=== PATIENT | male | born 1940 | race African-American/Black ===

== ENCOUNTER 2017-11-14 08:32 | Inpatient (IN) ==
[2017-11-14] MEDS ORDERED: LEVOFLOXACIN INJ 750 MG in PREMIX 1 EACH IV STA (08:53)
[2017-11-14] MEDS ORDERED: ALBUTEROL/IPRATROPIUM 3 ML NEB RESP TX STA (08:53)
[2017-11-14] MEDS ORDERED: methylPREDNISolone SOD SUC 125 MG/2 ML VIAL IV STA (08:53)
[2017-11-14] MEDS ORDERED: methylPREDNISolone SOD SUC 125 MG/2 ML VIAL ONE (09:05)
[2017-11-14] MEDS ORDERED: LEVOFLOXACIN INJ 150 ML IV ONE (09:05)
[2017-11-14 09:13] LABS: Basophils # 0.1 10*3/uL (0.0-0.2); Basophils % 0.4 % (0.0-0.8); Hematocrit 41.3 VOL% (42.0-52.0); Hemoglobin 13.1 GM/DL (14.0-18.0); Immature Granulocytes % 0.5 %; Immature Granulocytes Absolute 0.06 #; Lymphocytes # 1.2 10*3/uL (1.4-4.0); Mean Corpuscular HGB Conc 31.7 GM/DL (32-36); Mean Corpuscular Hemoglobin 27 PG (27-34); Mean Corpuscular Volume 85.9 FL (87-102); Mean Platelet Volume 11.4 FL (9.6-12.0); Monocytes # 1.3 10*3/uL (0.11-0.8); Monocytes % 11.2 % (1.7-12.7); Neutrophils # 9.2 10*3/uL (1.4-7.4); Neutrophils % 77.9 % (38.7-73.9); Platelet Count 199 T/CUMM (130-400); Red Blood Count 4.81 MC/CUMM (3.8-5.5); Red Cell Distribution Width 18.2 % (9.3-17.3); White Blood Count 11.8 T/CUMM (4-12)
[2017-11-14 09:16] LABS: ABG Base Excess -1.5 MMOL/L (-2.5-2.5); ABG HCO3 23.1 MMOL/L (20-26); ABG PCO2 46.3 MM HG (35-48); ABG PH 7.336 (7.35-7.45); ABG PO2 84.8 MM HG (80-95); ABG TCO2 21.8 MMOL/L (23-27)
[2017-11-14 09:43] LABS: Alanine Aminotransferase 26 U/L (16-61); Albumin 3.7 G/DL (3.4-5.0); Alkaline Phosphatase 105 U/L (45-117); Aspartate Amino Transferase 29 U/L (0-37); Blood Urea Nitrogen 14 MG/DL (7-18); Calcium 8.6 MG/DL (8.5-10.1); Glucose 109 MG/DL (74-106); Osmolality,Calculated 282.3 MOS/KG (273-304); Potassium 4.5 MMOL/L (3.5-5.1); Sodium 141 MMOL/L (136-145); Total Protein 7.1 G/DL (6.4-8.3); Troponin I Only < 0.015 NG/ML (0.00-0.045)
[2017-11-14] MEDS ORDERED: ALBUTEROL/IPRATROPIUM 3 ML NEB RESP TX PRN (12:16)
[2017-11-14] MEDS ORDERED: ONDANSETRON 4 MG/2 ML VIAL IV PRN (12:52)
[2017-11-14] MEDS: ALBUTEROL/IPRATROPIUM 3 ML NEB RESP TX SCH ×2 (13:02→20:54)
[2017-11-14] MEDS: ENOXAPARIN 40 MG/0.4 ML SYRINGE SUBCUT SCH (14:21)
[2017-11-14] MEDS ORDERED: AMINOPHYLLINE 250 MG in SODIUM CHLORIDE 0.9% 100 ML IV ONE (16:00)
[2017-11-14] MEDS: methylPREDNISolone SOD SUC 40 MG/1 ML VIAL IV SCH (16:25)
[2017-11-14] MEDS: AMINOPHYLLINE 500 MG in SODIUM CHLORIDE 0.9% 480 ML IV SCH (20:02)
[2017-11-14] MEDS: MONTELUKAST 10 MG TABLET PO SCH (20:53)
[2017-11-15] MEDS: ALBUTEROL/IPRATROPIUM 3 ML NEB RESP TX SCH ×4 (01:30→15:11)
[2017-11-15] MEDS: methylPREDNISolone SOD SUC 40 MG/1 ML VIAL IV SCH ×3 (01:50→16:05)
[2017-11-15 06:06] LABS: Basophils % 0.1 % (0.0-0.8); Immature Granulocytes % 0.8 %; Immature Granulocytes Absolute 0.11 #; Lymphocytes # 0.9 10*3/uL (1.4-4.0); Lymphocytes % 6.6 % (21.2-54.2); Mean Corpuscular HGB Conc 32.5 GM/DL (32-36); Mean Corpuscular Hemoglobin 27 PG (27-34); Mean Platelet Volume 11.4 FL (9.6-12.0); Monocytes # 0.3 10*3/uL (0.11-0.8); Monocytes % 2.5 % (1.7-12.7); Neutrophils # 11.7 10*3/uL (1.4-7.4); Platelet Count 214 T/CUMM (130-400); Red Blood Count 4.76 MC/CUMM (3.8-5.5); Red Cell Distribution Width 18.2 % (9.3-17.3)
[2017-11-15 06:35] LABS: Albumin 3.5 G/DL (3.4-5.0); Bilirubin,Total 0.7 MG/DL (0.2-1.0); Calcium 8.7 MG/DL (8.5-10.1); Osmolality,Calculated 282.4 MOS/KG (273-304); Total Protein 6.7 G/DL (6.4-8.3)
[2017-11-15] MEDS: NICOTINE 14 MG/24 HR PATCH TRANSDERM SCH (09:40)
[2017-11-15] MEDS: ATENOLOL 50 MG TABLET PO SCH (09:41)
[2017-11-15] MEDS: PANTOPRAZOLE 40 MG TABLET PO SCH (09:41)
[2017-11-15] MEDS: MONTELUKAST 10 MG TABLET PO SCH ×2 (09:41→20:23)
[2017-11-15] MEDS: amLODIPine 5 MG TABLET PO SCH (09:41)
[2017-11-15] MEDS: LEVOFLOXACIN INJ 750 MG in PREMIX 1 EACH IV SCH (09:41)
[2017-11-15] MEDS: ENOXAPARIN 40 MG/0.4 ML SYRINGE SUBCUT SCH (13:14)
[2017-11-15] MEDS ORDERED: ALBUTEROL/IPRATROPIUM 3 ML NEB RESP TX PRN (15:00)
[2017-11-15] MEDS ORDERED: EPINEPHrine 1 MG/ML VIAL SUBCUT ONE (17:37)
[2017-11-15] MEDS ORDERED: IPRATROPIUM 500 MCG/2.5 ML NEB RESP TX ONE (18:21)
[2017-11-15] MEDS ORDERED: PROPOFOL 1,000 MG/100 ML BOTTLE IV ONE (19:10)
[2017-11-15] MEDS ORDERED: PROPOFOL 200 MG/20 ML VIAL IV ONE (19:28)
[2017-11-15] MEDS ORDERED: ROCURONIUM 100 MG/10 ML VIAL IV ONE (19:29)
[2017-11-15] MEDS: PROPOFOL 1,000 MG/100 ML BOTTLE IV SCH (19:45)
[2017-11-15 20:11] LABS: ABG Base Excess -2.3 MMOL/L (-2.5-2.5); ABG HCO3 22.5 MMOL/L (20-26); ABG Oxygen Saturation 99.5 % (95-100); ABG PH 7.287 (7.35-7.45); ABG TCO2 22.4 MMOL/L (23-27)
[2017-11-15] MEDS: AMINOPHYLLINE 500 MG in SODIUM CHLORIDE 0.9% 480 ML IV SCH (20:23)
[2017-11-15 23:44] LABS: Apearance,Urine Slightly Hazy (Clear); Bilirubin,Urine Negative (Negative); Blood, Urine Moderate mg/dL (Negative); Glucose,Urine (UA) Negative (Negative); Granular Casts,Urine 5 /LPF (0-1); Hyaline Casts,Urine 29 /LPF (0-3); Ketones,Urine Negative (Negative); Mucus,Urine Occasional /LPF (Occasional); Nitrite,Urine Negative (Negative); Protein,Urine 30 MG/DL; RBC,Urine 2 /HPF (0-4); Squamous Epithelial Cell,Urine Occasional /HPF (0-10); Urine Color Yellow (Yellow); Urine Specific Gravity 1.021 (1.001-1.035); Urine Urobilinogen < 2.0 EU/DL (0.2-1.0); WBC,Urine 78 /HPF (0-6)
[2017-11-16] MEDS: PROPOFOL 1,000 MG/100 ML BOTTLE IV SCH ×4 (00:23→20:52)
[2017-11-16] MEDS: ALBUTEROL/IPRATROPIUM 3 ML NEB RESP TX SCH ×7 (00:23→19:23)
[2017-11-16] MEDS ORDERED: SODIUM CHLORIDE 0.9% 250 ML IV ONE (00:29)
[2017-11-16] MEDS: methylPREDNISolone SOD SUC 40 MG/1 ML VIAL IV SCH ×3 (01:19→17:56)
[2017-11-16 03:53] LABS: ABG Base Excess -3.2 MMOL/L (-2.5-2.5); ABG HCO3 21.8 MMOL/L (20-26); ABG Oxygen Saturation 99.6 % (95-100); ABG TCO2 21.1 MMOL/L (23-27)
[2017-11-16] MEDS: SODIUM CHLORIDE 0.9% 1,000 ML IV SCH ×4 (04:16→20:58)
[2017-11-16 04:54] LABS: Basophils % 0.1 % (0.0-0.8); Hematocrit 41.6 VOL% (42.0-52.0); Hemoglobin 13.2 GM/DL (14.0-18.0); Lymphocytes # 0.8 10*3/uL (1.4-4.0); Lymphocytes % 3.9 % (21.2-54.2); Mean Corpuscular HGB Conc 31.7 GM/DL (32-36); Mean Corpuscular Hemoglobin 27 PG (27-34); Mean Corpuscular Volume 86.1 FL (87-102); Mean Platelet Volume 12.1 FL (9.6-12.0); Monocytes # 1.9 10*3/uL (0.11-0.8); Monocytes % 9.6 % (1.7-12.7); NRBC # 0.05 10*3/uL; Neutrophils # 17.1 10*3/uL (1.4-7.4); Neutrophils % 85.4 % (38.7-73.9); Platelet Count 220 T/CUMM (130-400); Red Blood Count 4.83 MC/CUMM (3.8-5.5); Red Cell Distribution Width 18.6 % (9.3-17.3); White Blood Count 20.1 T/CUMM (4-12)
[2017-11-16 05:29] LABS: Band Neutrophils 24 % (0-10); Lymphocytes 6 % (20-55); Segmented Neutrophils 66 % (50-85); Target Cells 1+; Total Cells Counted 100
[2017-11-16 05:30] LABS: Anisocytosis 1+
[2017-11-16] MEDS: DORNASE ALFA 2.5 MG/2.5 ML VIAL RESP TX SCH ×2 (07:44→19:30)
[2017-11-16] MEDS: LEVOFLOXACIN INJ 750 MG in PREMIX 1 EACH IV SCH (10:16)
[2017-11-16] MEDS: amLODIPine 5 MG TABLET PO SCH (10:17)
[2017-11-16] MEDS: MONTELUKAST 10 MG TABLET PO SCH ×2 (10:17→20:51)
[2017-11-16] MEDS: ATENOLOL 50 MG TABLET PO SCH (10:17)
[2017-11-16] MEDS: NICOTINE 14 MG/24 HR PATCH TRANSDERM SCH (10:24)
[2017-11-16] MEDS: PANTOPRAZOLE 40 MG VIAL IV SCH (10:34)
[2017-11-16] MEDS ORDERED: DEXTROSE 50% 25 GM/50 ML VIAL IV PRN (11:57)
[2017-11-16] MEDS ORDERED: GLUCAGON 1 MG VIAL IM PRN (11:57)
[2017-11-16] MEDS: INSULIN REGULAR 100 UNIT/ML SUBCUT SCH ×2 (12:58→17:48)
[2017-11-16] MEDS: ENOXAPARIN 40 MG/0.4 ML SYRINGE SUBCUT SCH (13:34)
[2017-11-16] MEDS: PANTOPRAZOLE 40 MG TABLET PO SCH (14:01)
[2017-11-16] MEDS: AMINOPHYLLINE 500 MG in SODIUM CHLORIDE 0.9% 480 ML IV SCH (20:52)
[2017-11-17] MEDS: ALBUTEROL/IPRATROPIUM 3 ML NEB RESP TX SCH ×7 (01:04→23:31)
[2017-11-17] MEDS: INSULIN REGULAR 100 UNIT/ML SUBCUT SCH ×4 (01:20→19:27)
[2017-11-17] MEDS: PROPOFOL 1,000 MG/100 ML BOTTLE IV SCH ×3 (01:21→20:25)
[2017-11-17] MEDS: methylPREDNISolone SOD SUC 40 MG/1 ML VIAL IV SCH ×3 (02:21→19:49)
[2017-11-17 03:08] LABS: ABG Base Excess -3.5 MMOL/L (-2.5-2.5); ABG HCO3 22.3 MMOL/L (20-26); ABG Oxygen Saturation 99.1 % (95-100); ABG PCO2 43.3 MM HG (35-48); ABG PO2 245.4 MM HG (80-95); ABG TCO2 23.6 MMOL/L (23-27)
[2017-11-17 05:03] LABS: Basophils % 0.1 % (0.0-0.8); Hematocrit 36.5 VOL% (42.0-52.0); Hemoglobin 11.8 GM/DL (14.0-18.0); Immature Granulocytes % 0.7 %; Lymphocytes # 0.8 10*3/uL (1.4-4.0); Lymphocytes % 6.2 % (21.2-54.2); Mean Corpuscular HGB Conc 32.3 GM/DL (32-36); Mean Corpuscular Hemoglobin 27 PG (27-34); Mean Corpuscular Volume 83.5 FL (87-102); Mean Platelet Volume 11.3 FL (9.6-12.0); Monocytes # 0.7 10*3/uL (0.11-0.8); Monocytes % 5.3 % (1.7-12.7); Neutrophils # 11.8 10*3/uL (1.4-7.4); Neutrophils % 87.7 % (38.7-73.9); Platelet Count 186 T/CUMM (130-400); Red Blood Count 4.37 MC/CUMM (3.8-5.5); Red Cell Distribution Width 17.8 % (9.3-17.3); White Blood Count 13.4 T/CUMM (4-12)
[2017-11-17 05:28] LABS: Magnesium 2.8 MG/DL (1.8-2.4); Prealbumin 13.8 MG/DL (20-40)
[2017-11-17] MEDS: SODIUM CHLORIDE 0.9% 1,000 ML IV SCH (06:06)
[2017-11-17 06:10] LABS: Calcium 7.9 MG/DL (8.5-10.1); Osmolality,Calculated 295.3 MOS/KG (273-304)
[2017-11-17] MEDS: DORNASE ALFA 2.5 MG/2.5 ML VIAL RESP TX SCH ×2 (07:20→20:05)
[2017-11-17] MEDS: NICOTINE 14 MG/24 HR PATCH TRANSDERM SCH (09:30)
[2017-11-17] MEDS ORDERED: SODIUM CHLORIDE 0.9% 1,000 ML IV SCH (09:30)
[2017-11-17] MEDS: ATENOLOL 50 MG TABLET PO SCH (09:30)
[2017-11-17] MEDS: PANTOPRAZOLE 40 MG VIAL IV SCH (09:30)
[2017-11-17] MEDS: MONTELUKAST 10 MG TABLET PO SCH ×2 (09:30→22:17)
[2017-11-17] MEDS: amLODIPine 5 MG TABLET PO SCH (09:55)
[2017-11-17] MEDS: ENOXAPARIN 40 MG/0.4 ML SYRINGE SUBCUT SCH (14:00)
[2017-11-17] MEDS: AMINOPHYLLINE 500 MG in SODIUM CHLORIDE 0.9% 480 ML IV SCH (21:51)
[2017-11-18] MEDS: INSULIN REGULAR 100 UNIT/ML SUBCUT SCH ×4 (01:09→18:30)
[2017-11-18] MEDS: PROPOFOL 1,000 MG/100 ML BOTTLE IV SCH ×5 (01:25→21:02)
[2017-11-18] MEDS: methylPREDNISolone SOD SUC 40 MG/1 ML VIAL IV SCH ×3 (01:50→17:00)
[2017-11-18] MEDS: ALBUTEROL/IPRATROPIUM 3 ML NEB RESP TX SCH ×6 (02:36→23:47)
[2017-11-18 03:58] LABS: ABG Base Excess -2.7 MMOL/L (-2.5-2.5); ABG HCO3 23.2 MMOL/L (20-26); ABG Oxygen Saturation 99.1 % (95-100); ABG PCO2 44.2 MM HG (35-48); ABG PH 7.337 (7.35-7.45); ABG PO2 216.5 MM HG (80-95); ABG TCO2 24.5 MMOL/L (23-27); Allen Test Positive
[2017-11-18] MEDS: DORNASE ALFA 2.5 MG/2.5 ML VIAL RESP TX SCH ×2 (07:36→19:35)
[2017-11-18] MEDS ORDERED: LEVOFLOXACIN INJ 750 MG in PREMIX 1 EACH IV SCH (09:00)
[2017-11-18] MEDS: ATENOLOL 50 MG TABLET PO SCH (09:40)
[2017-11-18] MEDS: MONTELUKAST 10 MG TABLET PO SCH ×2 (09:40→20:49)
[2017-11-18] MEDS: NICOTINE 14 MG/24 HR PATCH TRANSDERM SCH (09:40)
[2017-11-18] MEDS: amLODIPine 5 MG TABLET PO SCH (09:40)
[2017-11-18] MEDS: ACETAMINOPHEN 325 MG TABLET PO PRN ×2 (09:40→16:00)
[2017-11-18] MEDS: PANTOPRAZOLE 40 MG VIAL IV SCH (09:40)
[2017-11-18] MEDS: ENOXAPARIN 40 MG/0.4 ML SYRINGE SUBCUT SCH (13:15)
[2017-11-18] MEDS: AMINOPHYLLINE 500 MG in SODIUM CHLORIDE 0.9% 480 ML IV SCH (20:49)
[2017-11-19] MEDS: INSULIN REGULAR 100 UNIT/ML SUBCUT SCH ×4 (00:42→19:33)
[2017-11-19] MEDS: methylPREDNISolone SOD SUC 40 MG/1 ML VIAL IV SCH ×3 (00:42→17:46)
[2017-11-19] MEDS: PROPOFOL 1,000 MG/100 ML BOTTLE IV SCH ×3 (01:21→20:37)
[2017-11-19] MEDS: ALBUTEROL/IPRATROPIUM 3 ML NEB RESP TX SCH ×6 (03:45→23:57)
[2017-11-19 04:02] LABS: ABG Base Excess 1.2 MMOL/L (-2.5-2.5); ABG HCO3 25.5 MMOL/L (20-26); ABG Oxygen Saturation 99.3 % (95-100); ABG PCO2 50.9 MM HG (35-48); ABG PH 7.344 (7.35-7.45); ABG TCO2 24.7 MMOL/L (23-27)
[2017-11-19 04:16] LABS: Basophils % 0.1 % (0.0-0.8); Hematocrit 36.9 VOL% (42.0-52.0); Hemoglobin 12.1 GM/DL (14.0-18.0); Immature Granulocytes % 0.9 %; Immature Granulocytes Absolute 0.15 #; Lymphocytes # 1.5 10*3/uL (1.4-4.0); Mean Corpuscular HGB Conc 32.8 GM/DL (32-36); Mean Corpuscular Hemoglobin 27 PG (27-34); Mean Corpuscular Volume 82.9 FL (87-102); Mean Platelet Volume 12.1 FL (9.6-12.0); Monocytes # 1.5 10*3/uL (0.11-0.8); Monocytes % 9.2 % (1.7-12.7); Neutrophils # 13.5 10*3/uL (1.4-7.4); Neutrophils % 80.8 % (38.7-73.9); Platelet Count 212 T/CUMM (130-400); Red Blood Count 4.45 MC/CUMM (3.8-5.5); Red Cell Distribution Width 18.2 % (9.3-17.3); White Blood Count 16.7 T/CUMM (4-12)
[2017-11-19 04:54] LABS: Magnesium 2.6 MG/DL (1.8-2.4); Osmolality,Calculated 299.7 MOS/KG (273-304); Potassium 5.1 MMOL/L (3.5-5.1)
[2017-11-19 05:02] LABS: Hypochromasia 1+; Platelet Estimate Adequate
[2017-11-19 05:03] LABS: Burr Cells Slight; Giant Platelets Few; Ovalocytes Slight
[2017-11-19] MEDS: DORNASE ALFA 2.5 MG/2.5 ML VIAL RESP TX SCH ×2 (07:26→19:57)
[2017-11-19] MEDS: NICOTINE 14 MG/24 HR PATCH TRANSDERM SCH (08:23)
[2017-11-19] MEDS: MONTELUKAST 10 MG TABLET PO SCH ×2 (08:24→20:31)
[2017-11-19] MEDS: ATENOLOL 50 MG TABLET PO SCH (08:24)
[2017-11-19] MEDS: amLODIPine 5 MG TABLET PO SCH (08:24)
[2017-11-19] MEDS: PANTOPRAZOLE 40 MG VIAL IV SCH (08:25)
[2017-11-19 12:11] LABS: Allen Test Positive
[2017-11-19 12:14] LABS: ABG HCO3 27.9 MMOL/L (20-26); ABG Oxygen Saturation 97.4 % (95-100); ABG PCO2 54.3 MM HG (35-48); ABG PH 7.328 (7.35-7.45); ABG PO2 98.4 MM HG (80-95); ABG TCO2 29.5 MMOL/L (23-27)
[2017-11-19 13:36] LABS: ABG Base Excess 3.6 MMOL/L (-2.5-2.5); ABG HCO3 27.5 MMOL/L (20-26); ABG Oxygen Saturation 94.8 % (95-100); ABG PCO2 52.9 MM HG (35-48); ABG PH 7.364 (7.35-7.45); ABG PO2 72.2 MM HG (80-95); ABG TCO2 26.8 MMOL/L (23-27); Allen Test Positive; Pt O2 Delivery Device Venturi Mask
[2017-11-19] MEDS: ENOXAPARIN 40 MG/0.4 ML SYRINGE SUBCUT SCH (14:55)
[2017-11-19] MEDS: LEVOFLOXACIN INJ 750 MG in PREMIX 1 EACH IV SCH (15:47)
[2017-11-19] MEDS: AMINOPHYLLINE 500 MG in SODIUM CHLORIDE 0.9% 480 ML IV SCH (20:35)
[2017-11-20] MEDS: INSULIN REGULAR 100 UNIT/ML SUBCUT SCH (00:31)
[2017-11-20] MEDS: methylPREDNISolone SOD SUC 40 MG/1 ML VIAL IV SCH ×3 (01:16→16:15)
[2017-11-20 03:44] LABS: ABG Base Excess 5.7 MMOL/L (-2.5-2.5); ABG HCO3 29.5 MMOL/L (20-26); ABG Oxygen Saturation 93.2 % (95-100); ABG PCO2 48.3 MM HG (35-48); ABG PH 7.419 (7.35-7.45); ABG PO2 64.6 MM HG (80-95); ABG TCO2 27.7 MMOL/L (23-27); Allen Test Positive
[2017-11-20] MEDS: ALBUTEROL/IPRATROPIUM 3 ML NEB RESP TX SCH ×6 (04:20→23:56)
[2017-11-20 04:51] LABS: Basophils % 0.2 % (0.0-0.8); Immature Granulocytes Absolute 0.55 #; Lymphocytes # 1.3 10*3/uL (1.4-4.0); Lymphocytes % 6.9 % (21.2-54.2); Mean Corpuscular HGB Conc 32.4 GM/DL (32-36); Mean Corpuscular Hemoglobin 27 PG (27-34); Mean Corpuscular Volume 83.5 FL (87-102); Mean Platelet Volume 11.5 FL (9.6-12.0); Monocytes % 5.6 % (1.7-12.7); Neutrophils # 15.3 10*3/uL (1.4-7.4); Neutrophils % 84.3 % (38.7-73.9); Platelet Count 190 T/CUMM (130-400); Red Blood Count 4.43 MC/CUMM (3.8-5.5); Red Cell Distribution Width 17.6 % (9.3-17.3); White Blood Count 18.2 T/CUMM (4-12)
[2017-11-20 05:21] LABS: Calcium 8.3 MG/DL (8.5-10.1); Osmolality,Calculated 295.7 MOS/KG (273-304); Potassium 5.1 MMOL/L (3.5-5.1)
[2017-11-20 05:40] LABS: Lymphocytes 14 % (20-55); Platelet Estimate Normal; Segmented Neutrophils 83 % (50-85); Total Cells Counted 100
[2017-11-20 05:41] LABS: Hypochromasia Slight; Macrocytosis Slight
[2017-11-20 05:42] LABS: Target Cells Slight
[2017-11-20] MEDS ORDERED: FUROSEMIDE 40 MG/4 ML VIAL IV ONE (06:38)
[2017-11-20] MEDS: DORNASE ALFA 2.5 MG/2.5 ML VIAL RESP TX SCH ×2 (07:23→20:19)
[2017-11-20] MEDS: NICOTINE 14 MG/24 HR PATCH TRANSDERM SCH (08:02)
[2017-11-20] MEDS: PANTOPRAZOLE 40 MG VIAL IV SCH (08:02)
[2017-11-20] MEDS: MONTELUKAST 10 MG TABLET PO SCH ×2 (08:02→21:25)
[2017-11-20] MEDS: amLODIPine 5 MG TABLET PO SCH (11:38)
[2017-11-20] MEDS: ATENOLOL 50 MG TABLET PO SCH (11:38)
[2017-11-20] MEDS: ENOXAPARIN 40 MG/0.4 ML SYRINGE SUBCUT SCH (13:30)
[2017-11-20] MEDS: LEVOFLOXACIN INJ 750 MG in PREMIX 1 EACH IV SCH (16:17)
[2017-11-20] MEDS: AMINOPHYLLINE 500 MG in SODIUM CHLORIDE 0.9% 480 ML IV SCH (21:25)
[2017-11-21] MEDS: methylPREDNISolone SOD SUC 40 MG/1 ML VIAL IV SCH ×3 (01:30→16:33)
[2017-11-21] MEDS: ALBUTEROL/IPRATROPIUM 3 ML NEB RESP TX SCH ×5 (04:21→19:37)
[2017-11-21 04:48] LABS: Basophils % 0.1 % (0.0-0.8); Hematocrit 39.1 VOL% (42.0-52.0); Hemoglobin 12.5 GM/DL (14.0-18.0); Immature Granulocytes % 3.7 %; Immature Granulocytes Absolute 0.76 #; Lymphocytes # 1.1 10*3/uL (1.4-4.0); Lymphocytes % 5.4 % (21.2-54.2); Mean Corpuscular Hemoglobin 26 PG (27-34); Mean Corpuscular Volume 82.7 FL (87-102); Neutrophils # 17.8 10*3/uL (1.4-7.4); Neutrophils % 85.8 % (38.7-73.9); Platelet Count 222 T/CUMM (130-400); Red Blood Count 4.73 MC/CUMM (3.8-5.5); Red Cell Distribution Width 17.6 % (9.3-17.3); White Blood Count 20.7 T/CUMM (4-12)
[2017-11-21 05:13] LABS: Calcium 8.6 MG/DL (8.5-10.1); Potassium 4.6 MMOL/L (3.5-5.1)
[2017-11-21 06:08] LABS: Band Neutrophils 3 % (0-10); Lymphocytes 4 % (20-55); Myelocytes 3 %; Segmented Neutrophils 87 % (50-85); Total Cells Counted 100
[2017-11-21 06:09] LABS: Anisocytosis 1+; Hypochromasia 1+; Platelet Estimate Normal; Target Cells 1+
[2017-11-21] MEDS: DORNASE ALFA 2.5 MG/2.5 ML VIAL RESP TX SCH ×2 (08:10→19:43)
[2017-11-21] MEDS ORDERED: PANTOPRAZOLE 40 MG TABLET PO ONE (08:23)
[2017-11-21] MEDS: NICOTINE 14 MG/24 HR PATCH TRANSDERM SCH (08:47)
[2017-11-21] MEDS: MONTELUKAST 10 MG TABLET PO SCH ×2 (08:48→21:02)
[2017-11-21] MEDS: ATENOLOL 50 MG TABLET PO SCH (08:48)
[2017-11-21] MEDS: amLODIPine 5 MG TABLET PO SCH (08:48)
[2017-11-21] MEDS: PANTOPRAZOLE 40 MG TABLET PO SCH ×2 (09:12→21:05)
[2017-11-21] MEDS: ENOXAPARIN 40 MG/0.4 ML SYRINGE SUBCUT SCH (14:16)
[2017-11-21] MEDS: LEVOFLOXACIN INJ 750 MG in PREMIX 1 EACH IV SCH (16:28)
[2017-11-21] MEDS: AMINOPHYLLINE 500 MG in SODIUM CHLORIDE 0.9% 480 ML IV SCH (20:54)
[2017-11-21] MEDS: ACETAMINOPHEN 325 MG TABLET PO PRN (20:55)
[2017-11-22] MEDS: ALBUTEROL/IPRATROPIUM 3 ML NEB RESP TX SCH ×6 (00:50→19:40)
[2017-11-22] MEDS: methylPREDNISolone SOD SUC 40 MG/1 ML VIAL IV SCH ×2 (01:35→09:00)
[2017-11-22 06:16] LABS: Basophils # 0.1 10*3/uL (0.0-0.2); Basophils % 0.2 % (0.0-0.8); Hematocrit 41.1 VOL% (42.0-52.0); Hemoglobin 13.8 GM/DL (14.0-18.0); Lymphocytes # 1.2 10*3/uL (1.4-4.0); Lymphocytes % 5.2 % (21.2-54.2); Mean Corpuscular HGB Conc 33.6 GM/DL (32-36); Mean Corpuscular Hemoglobin 27 PG (27-34); Mean Corpuscular Volume 81.7 FL (87-102); Mean Platelet Volume 12.5 FL (9.6-12.0); Monocytes # 0.8 10*3/uL (0.11-0.8); Monocytes % 3.6 % (1.7-12.7); Neutrophils # 19.4 10*3/uL (1.4-7.4); Platelet Count 220 T/CUMM (130-400); Red Blood Count 5.03 MC/CUMM (3.8-5.5); Red Cell Distribution Width 17.7 % (9.3-17.3); White Blood Count 22.3 T/CUMM (4-12)
[2017-11-22 06:51] LABS: Giant Platelets Few; Hypochromasia 1+; Lymphocytes 7 % (20-55); Platelet Estimate Adequate; Segmented Neutrophils 91 % (50-85); Total Cells Counted 100
[2017-11-22 06:52] LABS: Target Cells Slight
[2017-11-22 07:30] LABS: Magnesium 2.4 MG/DL (1.8-2.4); Prealbumin 26.1 MG/DL (20-40)
[2017-11-22] MEDS: DORNASE ALFA 2.5 MG/2.5 ML VIAL RESP TX SCH ×2 (08:00→19:41)
[2017-11-22] MEDS: amLODIPine 5 MG TABLET PO SCH (08:59)
[2017-11-22] MEDS: PANTOPRAZOLE 40 MG TABLET PO SCH ×2 (08:59→21:09)
[2017-11-22] MEDS: MONTELUKAST 10 MG TABLET PO SCH ×2 (08:59→21:09)
[2017-11-22] MEDS: NICOTINE 14 MG/24 HR PATCH TRANSDERM SCH (09:00)
[2017-11-22] MEDS: ATENOLOL 50 MG TABLET PO SCH (09:00)
[2017-11-22] MEDS: ENOXAPARIN 40 MG/0.4 ML SYRINGE SUBCUT SCH (13:54)
[2017-11-22] MEDS: LEVOFLOXACIN INJ 750 MG in PREMIX 1 EACH IV SCH (14:48)
[2017-11-22] MEDS ORDERED: TUBERCULIN SKIN TEST 0.1 ML SYRINGE INTRADERM ONE (15:30)
[2017-11-22] MEDS: methylPREDNISolone SOD SUC 125 MG/2 ML VIAL IV SCH (21:09)
[2017-11-23] MEDS: ALBUTEROL/IPRATROPIUM 3 ML NEB RESP TX SCH ×7 (00:49→23:24)
[2017-11-23] MEDS: AMINOPHYLLINE 500 MG in SODIUM CHLORIDE 0.9% 480 ML IV SCH (04:47)
[2017-11-23 06:49] LABS: Basophils % 0.2 % (0.0-0.8); Hematocrit 36.3 VOL% (42.0-52.0); Hemoglobin 12.2 GM/DL (14.0-18.0); Immature Granulocytes % 2.8 %; Immature Granulocytes Absolute 0.56 #; Lymphocytes # 1.4 10*3/uL (1.4-4.0); Mean Corpuscular HGB Conc 33.6 GM/DL (32-36); Mean Corpuscular Hemoglobin 27 PG (27-34); Mean Corpuscular Volume 81.2 FL (87-102); Mean Platelet Volume 12.3 FL (9.6-12.0); Monocytes # 1.5 10*3/uL (0.11-0.8); Monocytes % 7.8 % (1.7-12.7); Neutrophils # 16.3 10*3/uL (1.4-7.4); Neutrophils % 82.2 % (38.7-73.9); Platelet Count 247 T/CUMM (130-400); Red Blood Count 4.47 MC/CUMM (3.8-5.5); Red Cell Distribution Width 17.2 % (9.3-17.3); White Blood Count 19.9 T/CUMM (4-12)
[2017-11-23 07:07] LABS: Calcium 8.7 MG/DL (8.5-10.1); Osmolality,Calculated 286.3 MOS/KG (273-304); Potassium 4.6 MMOL/L (3.5-5.1)
[2017-11-23] MEDS: DORNASE ALFA 2.5 MG/2.5 ML VIAL RESP TX SCH ×2 (07:18→20:16)
[2017-11-23 07:19] LABS: Hypochromasia 2+; Lymphocytes 8 % (20-55); Platelet Estimate Adequate; Segmented Neutrophils 87 % (50-85); Total Cells Counted 100
[2017-11-23] MEDS: PANTOPRAZOLE 40 MG VIAL IV SCH (07:58)
[2017-11-23] MEDS: methylPREDNISolone SOD SUC 125 MG/2 ML VIAL IV SCH (08:48)
[2017-11-23] MEDS: MONTELUKAST 10 MG TABLET PO SCH ×2 (08:49→21:23)
[2017-11-23] MEDS: ATENOLOL 50 MG TABLET PO SCH (08:49)
[2017-11-23] MEDS: amLODIPine 5 MG TABLET PO SCH (08:49)
[2017-11-23] MEDS: NICOTINE 14 MG/24 HR PATCH TRANSDERM SCH (08:49)
[2017-11-23] MEDS: PANTOPRAZOLE 40 MG TABLET PO SCH ×2 (08:50→21:23)
[2017-11-23] MEDS: ENOXAPARIN 40 MG/0.4 ML SYRINGE SUBCUT SCH (13:08)
[2017-11-23] MEDS: LEVOFLOXACIN INJ 750 MG in PREMIX 1 EACH IV SCH (16:30)
[2017-11-23] MEDS: methylPREDNISolone SOD SUC 40 MG/1 ML VIAL IV SCH (21:23)
[2017-11-24] MEDS: ALBUTEROL/IPRATROPIUM 3 ML NEB RESP TX SCH ×5 (02:33→19:34)
[2017-11-24] MEDS: AMINOPHYLLINE 500 MG in SODIUM CHLORIDE 0.9% 480 ML IV SCH (06:29)
[2017-11-24] MEDS: DORNASE ALFA 2.5 MG/2.5 ML VIAL RESP TX SCH ×2 (07:20→21:09)
[2017-11-24] MEDS: MONTELUKAST 10 MG TABLET PO SCH ×2 (09:06→20:09)
[2017-11-24] MEDS: NICOTINE 14 MG/24 HR PATCH TRANSDERM SCH (09:06)
[2017-11-24] MEDS: methylPREDNISolone SOD SUC 40 MG/1 ML VIAL IV SCH (09:07)
[2017-11-24] MEDS: PANTOPRAZOLE 40 MG TABLET PO SCH ×2 (09:07→20:09)
[2017-11-24] MEDS: ATENOLOL 50 MG TABLET PO SCH (09:07)
[2017-11-24] MEDS: amLODIPine 5 MG TABLET PO SCH (09:07)
[2017-11-24] MEDS: THEOPHYLLINE ER 300 MG TABLET PO SCH ×2 (12:15→17:25)
[2017-11-24] MEDS: ENOXAPARIN 40 MG/0.4 ML SYRINGE SUBCUT SCH (12:15)
[2017-11-24] MEDS: LEVOFLOXACIN INJ 750 MG in PREMIX 1 EACH IV SCH (15:20)
[2017-11-25] MEDS: ALBUTEROL/IPRATROPIUM 3 ML NEB RESP TX SCH ×3 (00:03→07:44)
[2017-11-25] MEDS: DORNASE ALFA 2.5 MG/2.5 ML VIAL RESP TX SCH (07:47)
[2017-11-25] MEDS: THEOPHYLLINE ER 300 MG TABLET PO SCH (08:20)
[2017-11-25] MEDS: amLODIPine 5 MG TABLET PO SCH (08:20)
[2017-11-25] MEDS: NICOTINE 14 MG/24 HR PATCH TRANSDERM SCH (08:20)
[2017-11-25] MEDS: MONTELUKAST 10 MG TABLET PO SCH (08:20)
[2017-11-25] MEDS: ATENOLOL 50 MG TABLET PO SCH (08:21)
[2017-11-25] MEDS: PANTOPRAZOLE 40 MG TABLET PO SCH (08:21)
[2017-11-25] MEDS ORDERED: predniSONE 20 MG TABLET PO SCH (09:00)
[2017-11-25 09:36] VITALS: BP 122/87
== END 2017-11-25 12:00 | disposition swing bed (61) | DRG 166 ==
LOC: EDUNIT# → N.ED 08:32 → SUATTDRO 11:12 → N.EDINP 11:12 → N.5E 12:28 → N.ICU 11-15 19:07 → N.5E 11-22 20:34
PROVIDERS: ADMIT Hospitalist; ATTEND Internal Medicine

== ENCOUNTER 2019-10-03 05:45 | Inpatient (IN) ==
[2019-10-03] MEDS ORDERED: DIAZEPAM 5 MG TABLET PO ONE (06:00)
[2019-10-03] MEDS ORDERED: POTASSIUM CHLORIDE RIDER 10 MEQ in PREMIX 1 EACH IV PRN (06:00)
[2019-10-03] MEDS ORDERED: ASPIRIN 325 MG TABLET PO ONE (06:00)
[2019-10-03] MEDS ORDERED: MAGNESIUM SULF RIDER 2 GM in PREMIX 1 EACH IV PRN (06:00)
[2019-10-03] MEDS ORDERED: diphenhydrAMINE CAP 25 MG CAPSULE PO ONE (06:00)
[2019-10-03] MEDS ORDERED: ASPIRIN 325 MG TABLET ONE (06:48)
[2019-10-03] MEDS ORDERED: DIAZEPAM 5 MG TABLET ONE (06:48)
[2019-10-03] MEDS ORDERED: diphenhydrAMINE CAP 25 MG CAPSULE ONE (06:48)
[2019-10-03] MEDS ORDERED: LIDOCAINE 1% 20 ML VIAL ONE (06:52)
[2019-10-03] MEDS ORDERED: NITROGLYCERIN DRIP 50 MG/250 ML BOTTLE IV ONE (06:52)
[2019-10-03] MEDS ORDERED: VERAPAMIL 5 MG/2 ML VIAL ONE (06:53)
[2019-10-03] MEDS: SODIUM CHLORIDE 0.9% 1,000 ML IV SCH ×3 (06:55→20:30)
[2019-10-03] MEDS ORDERED: MIDAZOLAM 2 MG/2 ML VIAL ONE (07:07)
[2019-10-03] MEDS ORDERED: fentaNYL 100 MCG/2 ML VIAL ONE (07:07)
[2019-10-03] MEDS ORDERED: ENOXAPARIN 30 MG/0.3 ML SYRINGE ONE (07:27)
[2019-10-03] MEDS ORDERED: ADENOSINE 90 MG/30 ML VIAL IV ONE (07:47)
[2019-10-03] MEDS ORDERED: ACETAMINOPHEN 325 MG TABLET PO PRN (08:16)
[2019-10-03] MEDS ORDERED: NITROGLYCERIN SL 0.4 MG TABLET SL PRN (08:16)
[2019-10-03] MEDS ORDERED: MAGNESIUM HYDROXIDE SUSP 30 ML UDCUP PO PRN (08:16)
[2019-10-03] MEDS ORDERED: ONDANSETRON 4 MG/2 ML VIAL IV PRN (08:16)
[2019-10-03] MEDS ORDERED: ZALEPLON 5 MG CAPSULE PO PRN (08:16)
[2019-10-03] MEDS: ASPIRIN EC 81 MG TABLET PO SCH (09:40)
[2019-10-03] MEDS: PANTOPRAZOLE 40 MG TABLET PO SCH (09:40)
[2019-10-03] MEDS: ALBUTEROL/IPRATROPIUM 3 ML NEB RESP TX SCH (20:06)
[2019-10-03] MEDS: ATORVASTATIN 80 MG TABLET PO SCH (20:17)
[2019-10-04] MEDS: ALBUTEROL/IPRATROPIUM 3 ML NEB RESP TX SCH ×4 (00:40→18:51)
[2019-10-04 04:41] LABS: Basophils # 0.1 10*3/uL (0.0-0.2); Basophils % 0.7 % (0.0-0.8); Eosinophils # 0.3 10*3/uL (0.0-0.87); Eosinophils % 3.1 % (0.00-10.9); Hematocrit 38.7 VOL% (42.0-52.0); Hemoglobin 12.3 GM/DL (14.0-18.0); Immature Granulocytes % 0.3 %; Immature Granulocytes Absolute 0.03 #; Lymphocytes # 2.5 10*3/uL (1.4-4.0); Mean Corpuscular HGB Conc 31.8 GM/DL (32-36); Mean Corpuscular Volume 84.3 FL (87-102); Mean Platelet Volume 11.4 FL (9.6-12.0); Monocytes % 11.6 % (1.7-12.7); Neutrophils % 57.3 % (38.7-73.9); Platelet Count 212 T/CUMM (130-400); Red Blood Count 4.59 MC/CUMM (3.8-5.5); Red Cell Distribution Width 17.6 % (9.3-17.3); White Blood Count 9.2 T/CUMM (4-12)
[2019-10-04 04:58] LABS: Calcium 8.8 MG/DL (8.5-10.1); Osmolality,Calculated 287.6 MOS/KG (273-304)
[2019-10-04 05:33] LABS: Risk Ratio 2.6; Thyroid Stimulating Hormone 1.36 uIU/ml (0.358-3.74); VLDL CHOLESTEROL 13.4 MG/DL
[2019-10-04] MEDS: SODIUM CHLORIDE 0.9% 1,000 ML IV SCH ×3 (06:22→21:51)
[2019-10-04] MEDS: PANTOPRAZOLE 40 MG TABLET PO SCH (08:47)
[2019-10-04] MEDS: ASPIRIN EC 81 MG TABLET PO SCH (08:47)
[2019-10-04] MEDS ORDERED: diphenhydrAMINE CAP 25 MG CAPSULE PO PRN (15:11)
[2019-10-04] MEDS: ATORVASTATIN 80 MG TABLET PO SCH (20:22)
[2019-10-05 05:10] LABS: Basophils # 0.1 10*3/uL (0.0-0.2); Basophils % 0.6 % (0.0-0.8); Eosinophils # 0.3 10*3/uL (0.0-0.87); Eosinophils % 3.2 % (0.00-10.9); Hematocrit 41.2 VOL% (42.0-52.0); Hemoglobin 13.2 GM/DL (14.0-18.0); Immature Granulocytes % 0.3 %; Immature Granulocytes Absolute 0.03 #; Lymphocytes # 2.4 10*3/uL (1.4-4.0); Mean Corpuscular Volume 84.3 FL (87-102); Mean Platelet Volume 12.1 FL (9.6-12.0); Monocytes % 11.3 % (1.7-12.7); Neutrophils % 59.6 % (38.7-73.9); Platelet Count 215 T/CUMM (130-400); Red Blood Count 4.89 MC/CUMM (3.8-5.5); Red Cell Distribution Width 17.7 % (9.3-17.3); White Blood Count 9.5 T/CUMM (4-12)
[2019-10-05 05:39] LABS: Calcium 8.6 MG/DL (8.5-10.1); Osmolality,Calculated 281.1 MOS/KG (273-304)
[2019-10-05] MEDS ORDERED: diphenhydrAMINE CAP 25 MG CAPSULE PO ONE (06:00)
[2019-10-05] MEDS ORDERED: ceFAZolin 1,000 MG VIAL IRRIG ONE (06:00)
[2019-10-05] MEDS ORDERED: ceFAZolin 1,000 MG in SYRINGE 1 EACH IV ONE (06:00)
[2019-10-05] MEDS ORDERED: DIAZEPAM 5 MG TABLET PO ONE (06:00)
[2019-10-05] MEDS ORDERED: SODIUM CHLORIDE 0.9% 1,000 ML IV SCH ×2 (06:00)
[2019-10-05] MEDS: ALBUTEROL/IPRATROPIUM 3 ML NEB RESP TX SCH ×4 (06:36→18:10)
[2019-10-05] MEDS ORDERED: MIDAZOLAM 2 MG/2 ML VIAL ONE (11:39)
[2019-10-05] MEDS ORDERED: TISSUE ADHESIVE 1 EACH APPLICATOR TOP ONE (11:39)
[2019-10-05] MEDS ORDERED: LIDOCAINE 1% 20 ML VIAL ONE (11:39)
[2019-10-05] MEDS ORDERED: fentaNYL 100 MCG/2 ML VIAL ONE (11:39)
[2019-10-05] MEDS ORDERED: ceFAZolin 1,000 MG VIAL ONE (11:40)
[2019-10-05] MEDS: ASPIRIN EC 81 MG TABLET PO SCH (15:36)
[2019-10-05] MEDS: PANTOPRAZOLE 40 MG TABLET PO SCH (15:36)
[2019-10-05] MEDS: SODIUM CHLORIDE 0.9% 1,000 ML IV SCH (15:43)
[2019-10-05] MEDS: ATORVASTATIN 80 MG TABLET PO SCH (20:13)
[2019-10-06] MEDS: ALBUTEROL/IPRATROPIUM 3 ML NEB RESP TX SCH ×3 (00:02→12:57)
[2019-10-06 05:26] LABS: Basophils # 0.1 10*3/uL (0.0-0.2); Basophils % 0.5 % (0.0-0.8); Eosinophils # 0.3 10*3/uL (0.0-0.87); Eosinophils % 2.2 % (0.00-10.9); Hematocrit 42.5 VOL% (42.0-52.0); Hemoglobin 13.8 GM/DL (14.0-18.0); Immature Granulocytes % 0.4 %; Immature Granulocytes Absolute 0.05 #; Lymphocytes # 2.3 10*3/uL (1.4-4.0); Lymphocytes % 19.4 % (21.2-54.2); Mean Corpuscular HGB Conc 32.5 GM/DL (32-36); Mean Corpuscular Volume 83.3 FL (87-102); Mean Platelet Volume 11.6 FL (9.6-12.0); Monocytes % 11.2 % (1.7-12.7); Neutrophils % 66.3 % (38.7-73.9); Platelet Count 210 T/CUMM (130-400); Red Cell Distribution Width 17.2 % (9.3-17.3); White Blood Count 11.6 T/CUMM (4-12)
[2019-10-06 06:04] LABS: Calcium 8.8 MG/DL (8.5-10.1); Osmolality,Calculated 282.1 MOS/KG (273-304)
[2019-10-06 08:33] VITALS: BP 134/82
[2019-10-06] MEDS: PANTOPRAZOLE 40 MG TABLET PO SCH (09:11)
[2019-10-06] MEDS: ASPIRIN EC 81 MG TABLET PO SCH (09:11)
== END 2019-10-06 13:33 | disposition home or self-care (01) | DRG 243 ==
LOC: N.CL 05:45 → N.TELES 08:44
PROVIDERS: ADMIT Internal Medicine Cardiovascular Disease; ATTEND Internal Medicine Cardiovascular Disease
PROC: CLCCHCL (ICD-10-PCS; 2019-10-03 07:45)

== ENCOUNTER 2019-10-08 03:40 | Inpatient (IN) ==
[2019-10-08] MEDS ORDERED: ALBUTEROL/IPRATROPIUM 3 ML NEB RESP TX STA (03:52)
[2019-10-08] MEDS ORDERED: methylPREDNISolone SOD SUC 125 MG/2 ML VIAL IV STA (03:52)
[2019-10-08 04:28] LABS: Basophils # 0.1 10*3/uL (0.0-0.2); Basophils % 0.5 % (0.0-0.8); Eosinophils % 0.1 % (0.00-10.9); Hematocrit 40.5 VOL% (42.0-52.0); Immature Granulocytes % 0.5 %; Immature Granulocytes Absolute 0.07 #; Lymphocytes # 1.3 10*3/uL (1.4-4.0); Lymphocytes % 8.5 % (21.2-54.2); Mean Corpuscular HGB Conc 32.1 GM/DL (32-36); Mean Corpuscular Volume 84.7 FL (87-102); Mean Platelet Volume 11.3 FL (9.6-12.0); Monocytes % 12.7 % (1.7-12.7); Neutrophils % 77.7 % (38.7-73.9); Platelet Count 158 T/CUMM (130-400); Red Blood Count 4.78 MC/CUMM (3.8-5.5); Red Cell Distribution Width 17.2 % (9.3-17.3); White Blood Count 15.2 T/CUMM (4-12)
[2019-10-08 04:48] LABS: Calcium 7.4 MG/DL (8.5-10.1); Osmolality,Calculated 289.8 MOS/KG (273-304); Total Protein 5.9 G/DL (6.4-8.3)
[2019-10-08] MEDS ORDERED: ACETAMINOPHEN 325 MG TABLET PO PRN (07:22)
[2019-10-08] MEDS ORDERED: SIMETHICONE CHEW 125 MG TABLET PO PRN (07:22)
[2019-10-08] MEDS ORDERED: DOCUSATE SODIUM 100 MG CAPSULE PO PRN (07:22)
[2019-10-08] MEDS ORDERED: ALBUTEROL 2.5 MG/3 ML NEB RESP TX PRN (07:22)
[2019-10-08] MEDS ORDERED: ONDANSETRON 4 MG/2 ML VIAL IV PRN (07:22)
[2019-10-08] MEDS: ALBUTEROL/IPRATROPIUM 3 ML NEB RESP TX SCH ×3 (07:53→21:08)
[2019-10-08] MEDS: ATENOLOL 50 MG TABLET PO SCH (08:56)
[2019-10-08] MEDS: ENOXAPARIN 40 MG/0.4 ML SYRINGE SUBCUT SCH (08:57)
[2019-10-08] MEDS: PANTOPRAZOLE 40 MG TABLET PO SCH (08:57)
[2019-10-08] MEDS: amLODIPine 5 MG TABLET PO SCH (08:57)
[2019-10-08] MEDS: methylPREDNISolone SOD SUC 40 MG/1 ML VIAL IV SCH ×3 (08:57→22:48)
[2019-10-08] MEDS: MAGNESIUM OXIDE 400 MG TABLET PO SCH ×2 (11:06→21:04)
[2019-10-08] MEDS: LEVOFLOXACIN INJ 750 MG in PREMIX 1 EACH IV SCH (11:06)
[2019-10-08 11:20] LABS: Apearance,Urine CLOUDY (Clear); Bilirubin,Urine Negative (Negative); Blood, Urine Moderate mg/dL (Negative); Glucose,Urine (UA) 50 mg/dL (Negative); Ketones,Urine 5 mg/dL (Negative); Mucus,Urine Many /LPF (Occasional); Nitrite,Urine Negative (Negative); Protein,Urine 100 MG/DL; RBC,Urine 84 /HPF (0-4); Squamous Epithelial Cell,Urine Occasional /HPF (0-10); Urine Color Amber (Yellow); Urine Specific Gravity 1.025 (1.001-1.035); WBC,Urine 71 /HPF (0-6)
[2019-10-08] MEDS: ATORVASTATIN 80 MG TABLET PO SCH (21:04)
[2019-10-09] MEDS: ALBUTEROL/IPRATROPIUM 3 ML NEB RESP TX SCH ×4 (00:58→19:22)
[2019-10-09 04:51] LABS: Basophils % 0.1 % (0.0-0.8); Hematocrit 36.6 VOL% (42.0-52.0); Hemoglobin 11.8 GM/DL (14.0-18.0); Immature Granulocytes % 0.7 %; Immature Granulocytes Absolute 0.14 #; Lymphocytes # 1.1 10*3/uL (1.4-4.0); Lymphocytes % 5.4 % (21.2-54.2); Mean Corpuscular HGB Conc 32.2 GM/DL (32-36); Mean Corpuscular Volume 84.1 FL (87-102); Mean Platelet Volume 12.1 FL (9.6-12.0); Monocytes % 5.7 % (1.7-12.7); Neutrophils % 88.1 % (38.7-73.9); Platelet Count 164 T/CUMM (130-400); Red Blood Count 4.35 MC/CUMM (3.8-5.5); Red Cell Distribution Width 17.2 % (9.3-17.3); White Blood Count 20.4 T/CUMM (4-12)
[2019-10-09 05:21] LABS: Calcium 8.8 MG/DL (8.5-10.1); Osmolality,Calculated 289.3 MOS/KG (273-304)
[2019-10-09 05:26] LABS: Atypical Lymphocytes Few; Band Neutrophils 1 % (0-10); Hypochromasia 1+; Lymphocytes 7 % (20-55); Segmented Neutrophils 90 % (50-85); Target Cells Slight; Total Cells Counted 100
[2019-10-09 05:27] LABS: Microcytosis 1+; Platelet Estimate Adequate
[2019-10-09] MEDS: methylPREDNISolone SOD SUC 40 MG/1 ML VIAL IV SCH ×3 (09:25→23:44)
[2019-10-09] MEDS: LEVOFLOXACIN INJ 750 MG in PREMIX 1 EACH IV SCH (09:26)
[2019-10-09] MEDS: MAGNESIUM OXIDE 400 MG TABLET PO SCH ×2 (09:29→21:29)
[2019-10-09] MEDS: ATENOLOL 50 MG TABLET PO SCH (09:29)
[2019-10-09] MEDS: PANTOPRAZOLE 40 MG TABLET PO SCH (09:29)
[2019-10-09] MEDS: amLODIPine 5 MG TABLET PO SCH (09:29)
[2019-10-09] MEDS: ENOXAPARIN 40 MG/0.4 ML SYRINGE SUBCUT SCH (09:29)
[2019-10-09] MEDS ORDERED: MAGNESIUM HYDROXIDE SUSP 30 ML UDCUP PO ONE (10:35)
[2019-10-09] MEDS: ATORVASTATIN 80 MG TABLET PO SCH (21:29)
[2019-10-10] MEDS: ALBUTEROL/IPRATROPIUM 3 ML NEB RESP TX SCH ×3 (00:41→13:31)
[2019-10-10] MEDS: ENOXAPARIN 40 MG/0.4 ML SYRINGE SUBCUT SCH (08:51)
[2019-10-10] MEDS: methylPREDNISolone SOD SUC 40 MG/1 ML VIAL IV SCH (08:51)
[2019-10-10] MEDS: amLODIPine 5 MG TABLET PO SCH (08:52)
[2019-10-10] MEDS: PANTOPRAZOLE 40 MG TABLET PO SCH (08:52)
[2019-10-10] MEDS: ATENOLOL 50 MG TABLET PO SCH (08:52)
[2019-10-10] MEDS: MAGNESIUM OXIDE 400 MG TABLET PO SCH (08:52)
[2019-10-10] MEDS: LEVOFLOXACIN INJ 750 MG in PREMIX 1 EACH IV SCH (08:52)
[2019-10-10 13:22] VITALS: BP 115/72
== END 2019-10-10 14:08 | disposition home health service (06) | DRG 191 ==
LOC: EDUNIT# → EDBD → N.ED 03:40 → N.EDINP 05:45 → N.TELES 06:20
PROVIDERS: ADMIT Internal Medicine Geriatric Medicine; ATTEND Internal Medicine Geriatric Medicine